=== PATIENT | female | born 1970 | race Caucasian/White ===

== ENCOUNTER 2024-09-04 15:21 | Outpatient (CLI) | payer OTHER ==
[2024-09-04 17:04] LABS: Hematocrit 41.6 % (34.9-44.5); Hemoglobin 14.2 g/dL (12.0-15.5); Mean Corpuscular HGB CONC 34.1 g/dL (32.0-36.0); Mean Corpuscular Hemoglobin 30.2 pg (27.0-33.0); Mean Corpuscular Volume 88.5 fL (81.6-98.3); Mean Platelet Volume 9.4 fL (7.4-10.4); Platelet Count 340 10x3/uL (150-450); RBC Distribution Width 11.7 % (11.5-14.5); White Blood Cell (WBC) Count 6.4 10x3/uL (3.5-10.5)
[2024-09-04 17:15] LABS: Anion Gap 16 mmol/L (10-20); BUN (Urea Nitrogen) 9 mg/dL (9.8-20.1); Calc. Creatinine Clearance 0 mL/min (70-130); Calcium 9.4 mg/dL (7.8-10.44); Carbon Dioxide 24 mmol/L (22-29); Chloride 106 mmol/L (98-107); Estimated GFR 104; Glucose 93 mg/dL (70-105); Potassium 3.7 mmol/L (3.5-5.1); Sodium 142 mmol/L (136-145)
== END 2024-09-04 15:22 | disposition home or self-care (01) ==
LOC: CSHLAB 15:21
PROVIDERS: ATTEND Orthopaedic Surgery
DX: Z01.818 Encounter for other preprocedural examination (principal); M75.101 Unspecified rotator cuff tear or rupture of right shoulder, not specified as traumatic; M75.41 Impingement syndrome of right shoulder
CPT/HCPCS: 80048; 85027; 93005; 93010

== ENCOUNTER 2024-09-05 10:35 | Day surgery (SDC) | payer OTHER ==
[2024-09-04 15:59] VITALS: BMI 31.6
[2024-09-05] MEDS ORDERED: Ropivacaine 0.5% HCl/PF (150 MG/30 ML VIAL) ONE (11:59)
[2024-09-05] MEDS ORDERED: Midazolam HCl 2 mg/2 ml Vial ONE (11:59)
[2024-09-05] MEDS ORDERED: EPINEPHrine 1 MG/ML VIAL ONE ×2 (12:00→12:26)
[2024-09-05] MEDS ORDERED: Lidocaine 1% PF 5 ML VIAL ONE ×2 (12:00→12:16)
[2024-09-05] MEDS ORDERED: Ropivacaine 0.2% HCl/PF 20 ML ONE (12:00)
[2024-09-05] MEDS ORDERED: fentaNYL 50 mcg/mL 1 mL Vial ONE ×2 (12:00→12:17)
[2024-09-05] MEDS ORDERED: Rocuronium Bromide 10 MG/ML (10ML VIAL) ONE (12:16)
[2024-09-05] MEDS ORDERED: Ondansetron PF 4 MG/2 ML Vial ONE (12:16)
[2024-09-05] MEDS ORDERED: SUGAMMADEX SODIUM 200 MG/2 ML VIAL ONE (12:16)
[2024-09-05] MEDS ORDERED: Dexamethasone 20 MG/5 ML VIAL ONE (12:16)
[2024-09-05] MEDS ORDERED: PROPOFOL 20 ML ONE (12:17)
[2024-09-05] MEDS ORDERED: CEFAZOLIN 2 GM VIAL ONE (12:35)
[2024-09-05] MEDS ORDERED: Promethazine HCl 25 MG/ML VIAL IM PRN (12:45)
[2024-09-05] MEDS ORDERED: Ondansetron PF 4 MG/2 ML Vial IVP PRN (12:45)
[2024-09-05] MEDS ORDERED: Ropivacaine 0.2% 550 ML 550 ML NERVE BLCK SCH (12:45)
[2024-09-05] MEDS ORDERED: Zolpidem Tartrate 5 MG TAB PO PRN (12:45)
== END 2024-09-05 16:00 | disposition home or self-care (01) ==
LOC: CSHSDC 10:35
PROVIDERS: ATTEND Orthopaedic Surgery
PROC: 3E0T3BZ Introduction of Anesthetic Agent into Peripheral Nerves and Plexi, Percutaneous Approach (ICD-10-PCS; principal; 2024-09-05)
PROC: 0RNJ4ZZ Release Right Shoulder Joint, Percutaneous Endoscopic Approach (ICD-10-PCS; principal; 2024-09-05)
DX: M75.101 Unspecified rotator cuff tear or rupture of right shoulder, not specified as traumatic (principal); M75.41 Impingement syndrome of right shoulder; Z88.2 Allergy status to sulfonamides
CPT/HCPCS: A4306; C1713; J0171; J1100; J2250; J2405; J2704; J2795; J3010